=== PATIENT | female | born 1995 | race Asian ===

== ENCOUNTER 2017-08-06 05:32 | Inpatient (IN) | payer MEDICAID ==
[~2017-08-06] VITALS: Ht 172.7 cm; Wt 92.5 kg
[2017-08-06] MEDS ORDERED: LACTATED RINGERS 1,000 ML IV SCH (06:40)
[2017-08-06] MEDS ORDERED: MORPHINE SULFATE/PF 1MG/ML 10ML AMP ONE (06:57)
[2017-08-06] MEDS ORDERED: BUPIVACAINE/EPINEPHRINE/PF 0.25%/0.0005 30ML ONE (06:58)
[2017-08-06] MEDS ORDERED: BUPIVACAINE HCL/EPINEPHRINE 0.5%/0.0005 30ML ONE (07:08)
[2017-08-06] MEDS ORDERED: EPINEPHRINE 1:1000 1 MG/ML AMP ONE (07:08)
[2017-08-06 07:13] LABS: UCG SCREEN NEGATIVE
[2017-08-06] MEDS ORDERED: FENTANYL CITRATE/PF 50MCG/ML 2ML VIAL ONE ×2 (07:50→08:40)
[2017-08-06] MEDS ORDERED: MIDAZOLAM HCL 2 MG/2 ML VIAL ONE (07:51)
[2017-08-06] MEDS ORDERED: DEXAMETHASONE 4MG/ML 1ML VIAL ONE (08:03)
[2017-08-06] MEDS ORDERED: SODIUM CHLORIDE 0.9% 10ML VIAL ONE (08:03)
[2017-08-06] MEDS ORDERED: CEFAZOLIN SODIUM 1000MG/VIAL ONE (08:03)
[2017-08-06] MEDS ORDERED: PROPOFOL 200MG/20ML VIAL IV ONE ×3 (08:03→11:39)
[2017-08-06] MEDS ORDERED: LIDOCAINE HCL/PF 1% 10 MG/ML 5ML VIAL ONE (08:03)
[2017-08-06] MEDS ORDERED: HYDROMORPHONE HCL/PF 2MG/ML CPJ IV PRN (08:15)
[2017-08-06] MEDS ORDERED: LABETALOL HCL 20MG/4ML CARPUJECT IV PRN (08:15)
[2017-08-06] MEDS ORDERED: MEPERIDINE HCL/PF 25MG/ML CPJ IV PRN (08:15)
[2017-08-06] MEDS ORDERED: ONDANSETRON HCL 4MG/2ML VIAL IV PRN ×2 (08:15→12:30)
[2017-08-06] MEDS ORDERED: ROCURONIUM BROMIDE 10MG/ML VIAL 5ML IV ONE (10:39)
[2017-08-06] MEDS ORDERED: NEOSTIGMINE METHYLSULFATE 1MG/ML 10 ML VIAL ONE (10:39)
[2017-08-06] MEDS ORDERED: GLYCOPYRROLATE 0.2 MG/ML 2ML VIAL ONE (10:39)
[2017-08-06] MEDS ORDERED: SKIN ADHESIVE 0.7 GM EA TOP ONE (11:21)
[2017-08-06] MEDS ORDERED: HYDROMORPHONE HCL/PF 2MG/ML (OR) ONE (11:29)
[2017-08-06] MEDS ORDERED: MORPHINE SULFATE 10 MG/ML CPJ IV PRN (12:30)
[2017-08-06] MEDS ORDERED: HYDROCODONE/ACETAMINOPHEN 5/325MG TABLET PO PRN (12:30)
[2017-08-06] MEDS ORDERED: KETOROLAC 30MG/ML VIAL IV PRN (12:30)
[2017-08-06] MEDS ORDERED: ACETAMINOPHEN 325MG TABLET PO PRN (12:30)
[2017-08-06 15:15] VITALS: BP 112/77
[2017-08-06] MEDS: CEFAZOLIN 2,000 MG in DEXTROSE 5% WATER 50 ML IV SCH (18:10)
[2017-08-06 20:00] VITALS: BP 123/72
[2017-08-06] MEDS: MORPHINE SULFATE 2 MG/ML CPJ (NOT FOR IM USE) IV PRN (21:52)
[2017-08-07] VITALS: BP 130/79
[2017-08-07] MEDS: CEFAZOLIN 2,000 MG in DEXTROSE 5% WATER 50 ML IV SCH (01:56)
[2017-08-07] MEDS: HYDROCODONE/ACETAMINOPHEN 5/325MG TABLET PO PRN ×2 (02:04→13:30)
[2017-08-07 04:00] VITALS: BP 109/65
[2017-08-07] MEDS: MORPHINE SULFATE 2 MG/ML CPJ (NOT FOR IM USE) IV PRN (06:17)
[2017-08-07 08:27] VITALS: BP 124/75
[2017-08-07 12:00] VITALS: BP 125/76
[2017-08-07 12:10] VITALS: BP 125/76
[2017-08-07 13:30] VITALS: BP 125/76
== END 2017-08-07 14:36 | disposition home or self-care (01) | DRG 313 ==
LOC: OR 05:32 → 6EST 13:51
PROVIDERS: ADMIT Orthopaedic Surgery; ATTEND Orthopaedic Surgery
PROC: 0MRP47Z Replacement of Left Knee Bursa and Ligament with Autologous Tissue Substitute, Percutaneous Endoscopic Approach (ICD-10-PCS; 2017-08-06)
PROC: 0LBR4ZZ Excision of Left Knee Tendon, Percutaneous Endoscopic Approach (ICD-10-PCS; 2017-08-06)
PROC: 0SBD4ZZ Excision of Left Knee Joint, Percutaneous Endoscopic Approach (ICD-10-PCS; principal; 2017-08-06 07:30)
DX: S83.512A Sprain of anterior cruciate ligament of left knee, initial encounter (principal); M65.9 Synovitis and tenosynovitis, unspecified; S83.412A Sprain of medial collateral ligament of left knee, initial encounter; S83.8X2A Sprain of other specified parts of left knee, initial encounter; S83.272A Complex tear of lateral meniscus, current injury, left knee, initial encounter; M94.20 Chondromalacia, unspecified site; Y93.89 Activity, other specified; Y92.89 Other specified places as the place of occurrence of the external cause; Y99.8 Other external cause status; X50.1XXA Overexertion from prolonged static or awkward postures, initial encounter; S83.282A Other tear of lateral meniscus, current injury, left knee, initial encounter
CPT/HCPCS: 81025; 88304; 88311; 97110; 97116; 97162; A4216; J0171; J0690; J1100; J1170; J1885; J2250; J2270; J2274; J2405; J2704; J2710; J3010; J3490; J7040; J7060; J7120